=== PATIENT | female | born 1975 | race Caucasian/White ===

== ENCOUNTER 2020-09-16 11:19 | Inpatient (IN) ==
[2020-09-16] MEDS ORDERED: DILTIAZEM 50 MG/10 ML VIAL IV STA (11:37)
[2020-09-16 12:16] LABS: Hematocrit 40.7 VOL% (35.7-47.0); Hemoglobin 13.6 GM/DL (12.0-16.0); Lymphocytes % 12.4 % (21.3-54.2); Mean Corpuscular HGB Conc 33.4 GM/DL (32-36); Mean Corpuscular Volume 92.9 FL (87-102); Mean Platelet Volume 10.8 FL (9.6-12.0); Neutrophils % 81.7 % (38.7-73.9); Platelet Count 228 T/CUMM (130-400); Red Blood Count 4.38 MC/CUMM (3.8-5.5); Red Cell Distribution Width 13.2 % (9.3-17.3)
[2020-09-16 12:17] LABS: Basophils % 0.4 % (0.0-0.8); Eosinophils % 0.4 % (0.00-10.9); Immature Granulocytes % 0.3 %; Immature Granulocytes Absolute 0.03 #; Lymphocytes # 1.1 10*3/uL (1.4-4.0); Monocytes % 4.8 % (1.7-12.7)
[2020-09-16] MEDS: DILTIAZEM INJ 100 MG in SODIUM CHLORIDE 0.9% 100 ML IV SCH (12:19)
[2020-09-16 12:20] LABS: PT Patient Result 10.5 SECS (10.5-12.0)
[2020-09-16 12:21] LABS: INR 0.9; Partial Thromboplastin Time 23.2 SECS (23.9-33.8)
[2020-09-16 12:35] LABS: Urine Appearance CLEAR (Clear); Urine Color Colorless (Yellow)
[2020-09-16 12:36] LABS: Bilirubin,Urine Negative (Negative); Blood, Urine Negative (Negative); Glucose,Urine (UA) >=500 mg/dL (Negative); Ketones,Urine 20 mg/dL (Negative); Nitrite,Urine Negative (Negative); Protein,Urine Negative; Urine Urobilinogen < 2.0 EU/DL (0.2-1.0)
[2020-09-16 12:37] LABS: Bacteria,Urine Occasional /HPF (Few); Mucus,Urine Occasional /LPF (Occasional); RBC,Urine 1 /HPF (0-4); Squamous Epithelial Cell,Urine Occasional /HPF (0-10)
[2020-09-16 12:42] LABS: Albumin 3.3 G/DL (3.4-5.0); Bilirubin,Total 0.8 MG/DL (0.20-1.00); Calcium 8.1 MG/DL (8.5-10.1); Osmolality,Calculated 289.7 MOS/KG (273-304); Potassium 3.9 MMOL/L (3.5-5.1); Thyroid Stimulating Hormone 1.48 uIU/ml (0.358-3.74); Total Protein 6.5 G/DL (6.4-8.2)
[2020-09-16] MEDS ORDERED: GLUCAGON 1 MG VIAL IM PRN (12:54)
[2020-09-16] MEDS ORDERED: ACETAMINOPHEN 325 MG TABLET PO PRN (12:54)
[2020-09-16] MEDS ORDERED: ONDANSETRON 4 MG/2 ML VIAL IV PRN (12:54)
[2020-09-16] MEDS ORDERED: MORPHINE 2 MG/1 ML SYRINGE IV PRN (12:54)
[2020-09-16] MEDS ORDERED: DEXTROSE 50% 25 GM/50 ML VIAL IV PRN (12:54)
[2020-09-16] MEDS ORDERED: hydrALAZINE 20 MG/1 ML VIAL IV PRN (12:54)
[2020-09-16 12:59] LABS: Barbiturates Screen,Urine Negative (Negative); Benzodiazepines Screen,Urine Negative (Negative); Cannabinoid Screen,Urine Negative (Negative); Opiate Screen,Urine Negative (Negative); Phencyclidine Screen,Urine Negative (Negative)
[2020-09-16] MEDS ORDERED: ENOXAPARIN 40 MG/0.4 ML SYRINGE SUBCUT SCH (13:30)
[2020-09-16] MEDS ORDERED: MAGNESIUM SULF RIDER 2 GM/50 ML PREMIX IV ONE (14:14)
[2020-09-16] MEDS: INSULIN LISPRO 100 UNIT/ML SUBCUT SCH ×2 (17:10→22:09)
[2020-09-16 17:52] LABS: High Sensitive Troponin I* 17.3 ng/L (0-54)
[2020-09-16 20:14] LABS: High Sensitive Troponin I* 15.1 ng/L (0-54)
[2020-09-17 06:31] LABS: Basophils # 0.1 10*3/uL (0.0-0.2); Basophils % 0.7 % (0.0-0.8); Eosinophils # 0.1 10*3/uL (0.0-0.87); Eosinophils % 1.9 % (0.00-10.9); Immature Granulocytes % 0.1 %; Immature Granulocytes Absolute 0.01 #; Lymphocytes # 2.7 10*3/uL (1.4-4.0); Lymphocytes % 37.5 % (21.3-54.2); Mean Corpuscular HGB Conc 34.3 GM/DL (32-36); Mean Corpuscular Volume 91.9 FL (87-102); Mean Platelet Volume 10.6 FL (9.6-12.0); Monocytes % 6.5 % (1.7-12.7); Neutrophils % 53.3 % (38.7-73.9); Platelet Count 202 T/CUMM (130-400); Red Blood Count 3.81 MC/CUMM (3.8-5.5); Red Cell Distribution Width 13.5 % (9.3-17.3); White Blood Count 7.2 T/CUMM (4-12)
[2020-09-17 06:52] LABS: Calcium 7.8 MG/DL (8.5-10.1); Osmolality,Calculated 285.3 MOS/KG (273-304); Potassium 3.5 MMOL/L (3.5-5.1); Risk Ratio 2.51; VLDL Cholesterol 9.2 MG/DL
[2020-09-17] MEDS ORDERED: MAGNESIUM SULF RIDER 2 GM/50 ML PREMIX IV ONE (08:17)
[2020-09-17] MEDS ORDERED: POTASSIUM CHLORIDE 20 MEQ TABLET PO ONE ×2 (08:17→12:42)
[2020-09-17] MEDS: INSULIN LISPRO 100 UNIT/ML SUBCUT SCH ×4 (09:17→21:54)
[2020-09-17] MEDS: PANTOPRAZOLE 40 MG TABLET PO SCH (09:18)
[2020-09-17] MEDS: DILTIAZEM INJ 100 MG in SODIUM CHLORIDE 0.9% 100 ML IV SCH (12:03)
[2020-09-17] MEDS: LEVOFLOXACIN INJ 750 MG/150 ML PREMIX IV SCH (13:07)
[2020-09-17] MEDS: metFORMIN 500 MG TABLET PO SCH (16:35)
[2020-09-17] MEDS ORDERED: APIXABAN 5 MG TABLET PO SCH (21:00)
[2020-09-17] MEDS: carvediloL 3.125 MG TABLET PO SCH (22:40)
[2020-09-17] MEDS: MAGNESIUM CHLORIDE 64 MG TABLET PO SCH (22:40)
[2020-09-18 04:58] LABS: Calcium 8.2 MG/DL (8.5-10.1); Osmolality,Calculated 278.5 MOS/KG (273-304); Potassium 4.1 MMOL/L (3.5-5.1)
[2020-09-18] MEDS ORDERED: glyBURIDE 2.5 MG TABLET PO SCH (08:00)
[2020-09-18] MEDS: metFORMIN 500 MG TABLET PO SCH (08:56)
[2020-09-18] MEDS: PANTOPRAZOLE 40 MG TABLET PO SCH (08:56)
[2020-09-18] MEDS: MAGNESIUM CHLORIDE 64 MG TABLET PO SCH (08:56)
[2020-09-18] MEDS: carvediloL 3.125 MG TABLET PO SCH (08:56)
[2020-09-18] MEDS ORDERED: POTASSIUM CHLORIDE 20 MEQ TABLET PO SCH (09:00)
[2020-09-18] MEDS: INSULIN LISPRO 100 UNIT/ML SUBCUT SCH ×2 (10:47→11:49)
[2020-09-18 11:56] VITALS: BP 129/74
[2020-09-18] MEDS: LEVOFLOXACIN INJ 750 MG/150 ML PREMIX IV SCH (12:26)
[2020-09-18] MEDS ORDERED: LEVOFLOXACIN 750 MG TABLET PO SCH (13:30)
[2020-09-19] MEDS ORDERED: ASPIRIN EC 325 MG TABLET PO SCH (09:00)
== END 2020-09-18 15:36 | disposition home or self-care (01) | DRG 195 ==
LOC: N.ED 11:19 → N.EDINP 12:54 → SUATTDRO 12:54 → N.TELEN 16:19
PROVIDERS: ADMIT Internal Medicine; ATTEND Hospitalist